=== PATIENT | male | born 2005 | race Caucasian/White ===

== ENCOUNTER 2025-03-16 19:28 | Emergency (ER) | payer BC, SELFPAY ==
--- NOTE | ~2025-03-16 | XR_ITS ---
Examination: XR foot LT min 3V Clinical History: dropped car part onto foot w/concentration on big toe Comparison: None Technique: 3 views left foot Findings/impression: 1. No fracture or dislocation left foot. Reviewed, dictated and finalized at location R.
--- OUTSIDE RECORDS SUMMARY | 2025-03-16 19:30 | XMS_ITS | Clinical Summary ---
Author Organization [facility] Address [address] [place] [address] Care Team Providers Care Motor Equipment Sergeant Name Role Phone Jacqueline Tran MD Primary Care Provider [phone] Source Comments [facility],non-owned Affiliates and Associated Physician Practices is amultiple site organization consisting of ambulatory clinics and hospital sitesin [place], [place], [place] and [place]. This disclosure is being madepursuant to the Care Everywhere program and may not contain all information available regarding this patient. Last updated 18.Cardio control Allergies No known active allergies Medications * Be aware that medications may not be up to date on this document. Alwaysverify current medications with the patient. Pediatric Multivit-[place] als-C (FLINTSTONES COMPLETE) 60 MG tablet Take 1 Tab by mouth once daily. Active acetaminophen (TYLENOL) 325 MG tablet Take 325 mg by mouth every 4 hours as needed. Maximum allowable Acetaminophen amount = 4 Grams (4000 mg) / 24 hours. 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 Overview (10/28/2013): 1.0 x 0.8 cm; upper back; gradually enlarging with irregular pigmentation neg FH of melanoma or other skin CA; one episode of blistering sunburn 10/25/2013 elliptical excision: Cici [id number] nevus with congenital features Family History Medical History Relation Name Comments Cold Sores Brother Eczema Brother Cold Sores Father Asthma Maternal Uncle Hay Fever Maternal Uncle Cold Sores Mother Eczema Mother Relation Name Status Comments Brother Father Maternal Uncle Mother Social History Tobacco Use Types Packs/Day Years Used Date Smoking Tobacco: Never Assessed Sex and Gender Information Value Date Recorded Sex Assigned at Not on file Legal Sex Male 4:17 PM CDT Gender Identity Not on file Sexual Orientation Not on file Last Filed Vital Signs Vital Sign Reading Time Taken Comments Blood Pressure - - Pulse - - Temperature - - Respiratory Rate - - Oxygen Saturation - - Inhaled Oxygen Concentration - - Weight 37.8 kg (83 lb 5.3 oz) 10/25/2013 3:43 PM CDT Height 141.5 cm (4' 7.71) 10/25/2013 3:43 PM CD T Body Mass Index 18.88 10/25/2013 3:43 PM CDT Plan of Treatment Health Maintenance Due Date Last Done Comments HIV SCREENING 02/24/2019 HPV VACCINE (1 - Male 3-dose series) 02/24/2019 MENINGOCOCCAL (Group B) VACC INE SHARED DECISION-MAKING (1 of 2 - Standard) 2020 HEPATITIS C SCREENING 02/20/2022 DTAP/TDAP/TD VACCINES (1 - Tdap) 02/24/2023 HEPATITIS B VACCINE (1 of 3 - 19+ 3-dose series) 02/24/2023 DEPRESSION SCREENING 06/23/2024 COVID-19 VACCINE (1 - 2023-2 5 season) 2025 INFLUENZA VACCINE (#1) 2025 ZOSTER VACCINE (1 of 2) 02/24/2054 HIB VACCINE Aged Out No longer eligi ble based on patient's age to complete this topic MENINGOCOCCAL GROUPS A/C/Y/W VACCINE Aged Out No longer eligible b ased on patient's age to complete this topic PNEUMOCOCCAL VACCINE Aged Out No long er eligible based on patient's age to complete this topic Insurance MEDICAID - [place] Care Teams Motor Equipment Sergeant Relationship Specialty Start Date End Date Jacqueline Tran MD PCP - General Pediatrics 03/12/13
[2025-03-16 19:32] VITALS: BP 148/75; PULSE 108; RESP 20; TEMP 37.1; O2SAT 96
--- NOTE | 2025-03-16 20:11 | ED_ITS ---
HPI - Extremity Injury (Lower) General Chief Complaint: Extremity Injury, Lower Stated Complaint: foot injury Time Seen by Provider: 03/16/25 19:46 History of Present Illness HPI Narrative: 20-year-old male presenting to the emergency department after dropping a car differential in his left foot. He struck his left great toe. Has some pain and some subungual hematoma evident. Good range of motion but he does have pain. No other appreciable injuries. Does not think his tetanus is up today. Did not take anything for pain prior to arrival. Ambulatory without any difficulties. Related Data Allergies Allergy/AdvReac Type Severity Reaction Status Date / Time No Known Allergies Allergy Verified 03/16/25 19:34 Review of Systems Review of Systems: As reviewed above in HPI Exam Narrative: GENERAL: [Well-appearing, well-nourished, and in no acute distress.] HEAD: [Normocephalic, atraumatic.] EYES: [PERRLA and EOMI.] ENT: Nares clear, no rhinorrhea or epistaxis. Mucous membranes moist. NECK: Supple. CHEST: no signs of any respiratory distress HEART: [Regular rate and rhythm]. No murmur heard. [Normal peripheral pulses.] ABDOMEN: [Soft, nondistended], [nontender], [No rigidity or guarding] EXTREMITIES: left great toe has a subungual hematoma with some blood but no overt evident fracture. Good range of motion of the digit, good sensation and cap refill of the digit. No other appreciable injuries. 2+ dorsalis pedis pulse, warm extremity overall. Ambulatory. SKIN: Warm, dry, no rash. NEURO: [No focal deficits]. Alert and oriented [x3.] PSYCH: [Normal mood and affect.] Course Vital Signs Vital signs: Vital Signs Temperature 37.1 C 03/16/25 19:32 Pulse Rate 108 H 03/16/25 19:32 Respiratory Rate 20 03/16/25 19:32 Blood Pressure 148/75 H 03/16/25 19:32 Pulse Oximetry 96 03/16/25 19:32 Oxygen Delivery Room Air 03/16/25 19:32 Temperature 37.1 C 03/16/25 19:32 Pulse Rate 96 03/16/25 21:21 Respiratory Rate 18 03/16/25 21:21 Blood Pressure 143/79 H 03/16/25 21:21 Pulse Oximetry 99 03/16/25 21:21 Oxygen Delivery Room Air 03/16/25 19:32 Procedures Nail Trephination Nail Trephination #1: Nail Trephination Date: 03/16/25 Nail Trephination Time: 20:47 Time out: Yes Location (toes): first digit (left) Sterile prep: betadine Method of drainage: nail cautery Procedure successful: Yes Patient tolerated procedure: well and no complications MDM - Extremity Injury (Lower) MDM Narrative Medical decision making narrative: 20-year-old male presenting to the emergency department after dropping a car differential in his left foot. He struck his left great toe. Has some pain and some subungual hematoma evident. Good range of motion but he does have pain. No other appreciable injuries. Does not think his tetanus is up today. Did not take anything for pain prior to arrival. Ambulatory without any difficulties. left great toe has a subungual hematoma with some blood but no overt evident fracture. Good range of motion of the digit, good sensation and cap refill of the digit. No other appreciable injuries. 2+ dorsalis pedis pulse, warm extremity overall. Ambulatory. X-rays were obtained to rule out fracture and he was given Toradol and a tetanus update. X-rays reviewed and show no fracture. He does have a subungual hematoma that requires drainage so Bovie cautery was used for relief. local wound care and dressing applied. Patient given pain control medications for discharge and return precautions and follow-up instructions. Patient had successful nail trephination with expression of blood and resolution of good portion of the subungual hematoma. Patient was your gated and dressing applied. Wound care instructions provided to patient and family. Patient refuses tetanus shot but was agreeable to take a course of Keflex to prevent infection given the dirty nature of the wound. Patient sent home with 5 days of Keflex and instructed to take Tylenol and ibuprofen at home for pain control and given worknote. Medical Records Attestation: I reviewed the patient's medical records. Imaging Data Attestation: I personally reviewed and interpreted this imaging study as follows: Radiologist's impression: Findings/impression: 1. No fracture or dislocation left foot. Discharge Plan Discharge Clinical Impression: Subungual hematoma, Injury of left great toe Patient Disposition: Home Condition: Stable Instructions: Antibiotic Form Additional Instructions: Take the prescribed antibiotics to prevent infection. Take [id number] Tylenol or ibuprofen every [id number] hours for pain and swelling control. We did trephinate your nail so there is a hole there for allowing blood to escape. Return with any signs of active infection otherwise follow-up with regular doctor. Were steel-toed boots at work and keep the area covered and dry. Change dressings as that get dirty at least once daily. Patient Language: Polish Prescriptions: New cephalexin 500 mg capsule 500 mg PO Q12H 5 Days Qty: 10 0RF Follow-up/Referrals: PHYSICIAN,BROADCAST TECHNICIAN [Primary Care Provider, Internal Medicine] Stand Alone Forms: Work/School Release IP Time of Disposition: 21:04
[2025-03-16] MEDS: KETOROLAC 30 MG/ML VIAL (*BKC) IM (20:26)
[2025-03-16 20:54] VITALS: BP 143/79; PULSE 96; RESP 18; O2SAT 99
[2025-03-16 21:21] VITALS: BP 143/79; PULSE 96; RESP 18; O2SAT 99
== END 2025-03-16 21:23 | disposition home or self-care (01) ==
PROVIDERS: Emergency Provider Student in an Organized Health Care Education/Training Program
DX: S90.212A Contusion of left great toe with damage to nail, initial encounter (principal); W20.8XXA Other cause of strike by thrown, projected or falling object, initial encounter
CPT/HCPCS: 11740; 73630; 96372; 99283; J1885